=== PATIENT | female | born 1975 | race Caucasian/White ===

== ENCOUNTER 2016-11-11 19:34 | Emergency (ER) | payer MEDICAID ==
[~2016-11-11] VITALS: Ht 170.2 cm; Wt 63.5 kg
[~2016-11-11 19:34] MED LIST: BENADRYL 25MG C25 MG PO; CARAFATE1 GM PO; CIPRO 500MG TA500 MG PO; CYCLOBENZ5 MG PO; CYCLOBENZAPRINE10 MG PO; EFFER-K10 MEQ PO; FLEXERIL10 MG PO; IBU-8800 MG PO; LORTAB 5/500 501 TAB PO; MEDROL 4MG. DOSE4 MG PO; NAPROSYN 500MG500 MG PO; NAPROSYN500 M1 PO; NICOTINE PATCH;21 MG TD; NOMEDS XX; ONDANSETRON4 MG PO; PERCOCET 5/3251 EACH PO; REGLAN10 M1 PO; ROBAXIN-750750 MG PO; TUMERSAID PO; VESICARE5 MG PO; VICODIN 5/500 T1 TAB PO; VOLTAREN75 MG PO; ZITHROMAX Z PA250 MG PO
[2016-11-11 20:22] LABS: BUN 14 mg/dL (7-18)
[2016-11-11 20:23] LABS: GFR (ESTIMATED) 78 ML/MIN (59-)
[2016-11-11 20:36] LABS: HEMOGLOBIN 11.9 g/dL (12.2-16.2)
[2016-11-11 20:38] LABS: LYMPH # 2.7 K/mm3 (0.7-4.5); LYMPH % 51.6 % (10-50.0)
--- NOTE | 2016-11-11 20:52 | Emergency Room Report ---
History of Present Illness Time Seen by [id number] Presenting Problem in Triage Pt arrived:Walked Presenting Problem:C/O CHEST PAIN OFF AND ON X 3 DAYS. 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 N Clinical Suspician of Infection? N Mental Status: 1 - Regular (Normal Baseline) Sepsis Risk:Low Sepsis Risk Have you (or family members/close friends) recently traveled outside the [place]? N If Yes, where/when: Have you had exposure to infectious disease within the past month? N TB? Other? Specify: Comment The patient complains of intermittent chest pains off and on for 3 days. She describes different types of pains, some feeling like electrical shocks and some feeling like pressure on her chest. She says that yesterday she had a sharp electric shock type of pain that some was in her LEFT chest and radiated down her LEFT arm and lasted for 2 minutes, and ever since then she has had soreness in her LEFT chest. Nothing makes it better or worse. No change with exertion. Denies other symptoms. Pain is currently /. No treatment prior to arrival. She was admitted to this hospital in July for chest pain. She tells me that the chest pains she was having then are the same as now. She had myocardial infarction ruled out and was discharged. She says she was supposed to follow-up with Dr. Fall for cardiology evaluation but did not have insurance. She now has insurance since the beginning of the year. She says she has a new primary care physician Dr. Avelar, but cannot get in for 6-8 weeks. She is a smoker. She says she does not know her family history. She does not have diabetes, hypertension, hyperlipidemia, or any known heart disease. ALLERGIES Coded Allergies: codeine (Mild, NA-NAUSEA 11/11/16) povidone-iodine (From BETADINE) (Mild, I-RASH 11/11/16) NSAIDS (Non-Steroidal Anti-Inflamma (AGGRAVATES STOMACH ULCER 08/07/16) Home Medications Reported Medications No Known Home Medications History Medical History General CAD? No Angina: Yes [place]: No Hypertension? No Hyperlipidemia? No CHF? No DVT? No PE? No COPD? No Asthma? No Anemia? No GERD? No Gastric ulcers? Yes GI Bleed? No Hernia? No Thyroid Problems? No Hypothyroidism? No CVA? No Seizures? No Diabetes? No Renal Insuffiency? Yes End Stage Renal Disease? No UTI? Yes Stones? No GB Disease: No Nephritic Syndrome? No Asplenia? No Hepatitis? No Sickle Cell Disease? No Arthritis? Yes Migraines? No Cataracts? No Glaucoma? No MRSA? No HIV? No TB? No Anxiety? No Depression? Yes Cancer? 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 Family History Family Hx Diabetes Yes CAD Yes Hypertension Yes Hyperlipidemia Yes Cancer Yes TB No Social History Smoking Hx Smoker: Current Every Day Smoker Tobacco: Yes Type Cigars Packs/day < 1 Pack Alcohol Alcohol: No Review of Systems All Other Systems Reviewed and Negative Physical Exam Vital Signs Vital Signs Date Time Temp Pulse Resp B/P Pulse O2 O2 Flow FiO2 Ox Delivery Rate 11/11 2051 72 16 102/59 98 11/11 2009 80 18 113/69 99 11/11 1934 98.6 83 18 122/71 99 General Appearance normal appearance, WD/WN Eye Exam - bilateral eye normal exam, bilateral eye PERRL, bilateral eye EOMI Ear, Nose, Throat hearing grossly normal, normal ENT inspection Neck normal inspection, non-tender, supple, full range of motion Respiratory Status Yes: trachea midline, chest symmetrical, non tender chest. No: respiratory distress. Lung Sounds bilateral: normal breath sounds, lungs clear. 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 No Results/Orders Laboratory Tests 11/11/161944: Sodium 139, Potassium 3.6, Chloride 104, Carbon Dioxide 27, BUN 14, Creatinine 0.8, Estimated Creat Clear 91, Estimated GFR (MDRD) 78, Glucose 115 H, Calcium 8.7, Total Bilirubin 0.4, AST 10 L, ALT 14, Alkaline Phosphatase 93, Creatine Kinase 73, CK-MB (CK-2) Rel Index 1.0, CK and CKMB Interp 0.7, Troponin I < 0.02 , Total Protein 6.8, Albumin 3.7, Globulin 3.1, Albumin/Globulin Ratio 1.2, WBC 5.2, RBC 3.81 L, Hgb 11.9 L, Hct 35.1 L, MCV 92.1, RDW 14.0, Plt Count 227, Gran % 43.0, Gran # 2.2, Total Counted Pending, Lymphocytes % 51.6 H, Monocytes % 5.4, Neutrophils Pending, Lymphocytes (Manual) Pending, Lymphocytes # 2.7, Monocytes # 0.3, Platelet Estimate Pending, PUBS MCHC 33.9, MCH 31.2 Current Medication Orders Sig/Lalit Start time Last Medication Dose Route Stop Time Status Admin Aspirin 324 MG ONCE ONE 11/11 1944 DCr 11/11 PO 11/11 Aspirin 0 .STK-MED ONE 11/11 1944 DCr .ROUTE Sodium Chloride 10 ML PRN PRN 11/11 1944 AC IV 11/12 1942 Orders Procedure Date/time Status DIFFERENTIAL-WBC 11/11 1944 Active ELECTROCARDIOGRAM REQUEST 11/11 1942 Active CHEST(2 VIEWS-NOT PORTABLE) 11/11 1942 Active IV SALINE LOCK 11/11 1942 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 Her current discomfort has been present for 24 hours and she has negative cardiac enzymes and electrocardiogram. I feel one set of cardiac enzymes is sufficient given the duration of her pain. She has also been ruled out for the same pain in the past. I feel she can follow-up with Dr. Fall as an outpatient as previously instructed and I will give her a referral. I estimate there is LOW risk for PULMONARY EMBOLISM, ACUTE CORONARY SYNDROME, OR THORACIC AORTIC DISSECTION, thus I consider the discharge disposition reasonable. Departure Departure Disposition DC Home or Self Care(routine) Clinical Impression Primary Impression: Atypical chest pain Condition STABLE Referrals Eufemia PETERSON, Aashish Call tomorrow to set up appointment Patient Instructions DI for Atypical Chest Pain Additional Instructions Additional instructions for CHEST PAIN: See your physician as soon as possible for further evaluation. Return immediately if worsening chest pain, vomiting, shortness of breath, fever, coughing of blood. Prescriptions Current Visit Scripts No Known Home Medications ED Critical Care Critical Care No at [id number]
--- NOTE | 2016-11-11 20:52 | Emergency Room Report ---
History of Present Illness Time Seen by [id number] Presenting Problem in Triage Pt arrived:Walked Presenting Problem:C/O CHEST PAIN OFF AND ON X 3 DAYS. 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 N Clinical Suspician of Infection? N Mental Status: 1 - Regular (Normal Baseline) Sepsis Risk:Low Sepsis Risk Have you (or family members/close friends) recently traveled outside the [place]? N If Yes, where/when: Have you had exposure to infectious disease within the past month? N TB? Other? Specify: Comment The patient complains of intermittent chest pains off and on for 3 days. She describes different types of pains, some feeling like electrical shocks and some feeling like pressure on her chest. She says that yesterday she had a sharp electric shock type of pain that some was in her LEFT chest and radiated down her LEFT arm and lasted for 2 minutes, and ever since then she has had soreness in her LEFT chest. Nothing makes it better or worse. No change with exertion. Denies other symptoms. Pain is currently /. No treatment prior to arrival. She was admitted to this hospital in July for chest pain. She tells me that the chest pains she was having then are the same as now. She had myocardial infarction ruled out and was discharged. She says she was supposed to follow-up with Dr. Fall for cardiology evaluation but did not have insurance. She now has insurance since the beginning of the year. She says she has a new primary care physician Dr. Avelar, but cannot get in for 6-8 weeks. She is a smoker. She says she does not know her family history. She does not have diabetes, hypertension, hyperlipidemia, or any known heart disease. ALLERGIES Coded Allergies: codeine (Mild, NA-NAUSEA 11/11/16) povidone-iodine (From BETADINE) (Mild, I-RASH 11/11/16) NSAIDS (Non-Steroidal Anti-Inflamma (AGGRAVATES STOMACH ULCER 08/07/16) Home Medications Reported Medications No Known Home Medications History Medical History General CAD? No Angina: Yes [place]: No Hypertension? No Hyperlipidemia? No CHF? No DVT? No PE? No COPD? No Asthma? No Anemia? No GERD? No Gastric ulcers? Yes GI Bleed? No Hernia? No Thyroid Problems? No Hypothyroidism? No CVA? No Seizures? No Diabetes? No Renal Insuffiency? Yes End Stage Renal Disease? No UTI? Yes Stones? No GB Disease: No Nephritic Syndrome? No Asplenia? No Hepatitis? No Sickle Cell Disease? No Arthritis? Yes Migraines? No Cataracts? No Glaucoma? No MRSA? No HIV? No TB? No Anxiety? No Depression? Yes Cancer? 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 Family History Family Hx Diabetes Yes CAD Yes Hypertension Yes Hyperlipidemia Yes Cancer Yes TB No Social History Smoking Hx Smoker: Current Every Day Smoker Tobacco: Yes Type Cigars Packs/day < 1 Pack Alcohol Alcohol: No Review of Systems All Other Systems Reviewed and Negative Physical Exam Vital Signs Vital Signs Date Time Temp Pulse Resp B/P Pulse O2 O2 Flow FiO2 Ox Delivery Rate 11/11 2051 72 16 102/59 98 11/11 2009 80 18 113/69 99 11/11 1934 98.6 83 18 122/71 99 General Appearance normal appearance, WD/WN Eye Exam - bilateral eye normal exam, bilateral eye PERRL, bilateral eye EOMI Ear, Nose, Throat hearing grossly normal, normal ENT inspection Neck normal inspection, non-tender, supple, full range of motion Respiratory Status Yes: trachea midline, chest symmetrical, non tender chest. No: respiratory distress. Lung Sounds bilateral: normal breath sounds, lungs clear. 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 No Results/Orders Laboratory Tests 11/11/161944: Sodium 139, Potassium 3.6, Chloride 104, Carbon Dioxide 27, BUN 14, Creatinine 0.8, Estimated Creat Clear 91, Estimated GFR (MDRD) 78, Glucose 115 H, Calcium 8.7, Total Bilirubin 0.4, AST 10 L, ALT 14, Alkaline Phosphatase 93, Creatine Kinase 73, CK-MB (CK-2) Rel Index 1.0, CK and CKMB Interp 0.7, Troponin I < 0.02 , Total Protein 6.8, Albumin 3.7, Globulin 3.1, Albumin/Globulin Ratio 1.2, WBC 5.2, RBC 3.81 L, Hgb 11.9 L, Hct 35.1 L, MCV 92.1, RDW 14.0, Plt Count 227, Gran % 43.0, Gran # 2.2, Total Counted Pending, Lymphocytes % 51.6 H, Monocytes % 5.4, Neutrophils Pending, Lymphocytes (Manual) Pending, Lymphocytes # 2.7, Monocytes # 0.3, Platelet Estimate Pending, PUBS MCHC 33.9, MCH 31.2 Current Medication Orders Sig/Lalit Start time Last Medication Dose Route Stop Time Status Admin Aspirin 324 MG ONCE ONE 11/11 1944 DCr 11/11 PO 11/11 Aspirin 0 .STK-MED ONE 11/11 1944 DCr .ROUTE Sodium Chloride 10 ML PRN PRN 11/11 1944 AC IV 11/12 1942 Orders Procedure Date/time Status DIFFERENTIAL-WBC 11/11 1944 Active ELECTROCARDIOGRAM REQUEST 11/11 1942 Active CHEST(2 VIEWS-NOT PORTABLE) 11/11 1942 Active IV SALINE LOCK 11/11 1942 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 Her current discomfort has been present for 24 hours and she has negative cardiac enzymes and electrocardiogram. I feel one set of cardiac enzymes is sufficient given the duration of her pain. She has also been ruled out for the same pain in the past. I feel she can follow-up with Dr. Fall as an outpatient as previously instructed and I will give her a referral. I estimate there is LOW risk for PULMONARY EMBOLISM, ACUTE CORONARY SYNDROME, OR THORACIC AORTIC DISSECTION, thus I consider the discharge disposition reasonable. Departure Departure Disposition DC Home or Self Care(routine) Clinical Impression Primary Impression: Atypical chest pain Condition STABLE Referrals Eufemia PETERSON, Aashish Call tomorrow to set up appointment Patient Instructions DI for Atypical Chest Pain Additional Instructions Additional instructions for CHEST PAIN: See your physician as soon as possible for further evaluation. Return immediately if worsening chest pain, vomiting, shortness of breath, fever, coughing of blood. Prescriptions Current Visit Scripts No Known Home Medications ED Critical Care Critical Care No at [id number]
[2016-11-11 21:08] VITALS: BP 102/59
[2016-11-11 22:44] LABS: NEUTROPHILS 45 % (42-76)
--- NOTE | 2016-11-12 04:31 | RADIOLOGY REPORT PS360 ---
CHEST(2 VIEWS-NOT PORTABLE) HISTORY: C/O SHORTNESS OF BREATH AND COUGH COMPARISON: 08/07/2016 FINDINGS: The cardiomediastinal silhouette and pulmonary vascularity are within normal limits. Calcified granuloma right upper lobe with biapical pleural thickening. No lobar consolidation or collapse. No acute bony abnormalities. IMPRESSION: No change with no acute finding
== END 2016-11-11 21:12 | disposition home or self-care (01) ==
LOC: ER 19:34
PROVIDERS: Emergency Medicine
DX: R07.89 Other chest pain (principal); Z72.0 Tobacco use

== ENCOUNTER → 2017-01-07 | Outpatient (CLI) | payer MEDICAID ==
[2017-01-07 17:42] LABS: BUN 10 mg/dL (7-18)
[2017-01-07 17:46] LABS: GFR (ESTIMATED) 91 ML/MIN (59-)
== END ==
LOC: LAB 15:06
PROVIDERS: Nurse Practitioner Family
DX: E78.2 Mixed hyperlipidemia (principal)

== ENCOUNTER 2017-06-17 11:36 | Emergency (ER) | payer SELFPAY ==
[~2017-06-17] VITALS: Ht 170.2 cm; Wt 65.8 kg
[~2017-06-17 11:36] MED LIST changes: +BACTRIM DS 8001 TA1 PO
[2017-06-17 11:48] LABS: HEMOGLOBIN 13.2 g/dL (12.2-16.2); LYMPH # 2.8 K/mm3 (0.7-4.5); LYMPH % 42.8 % (10-50.0)
--- NOTE | 2017-06-17 12:10 | Emergency Room Report ---
History of Present Illness Time Seen by MD Vora Presenting Problem in Triage Pt arrived:Walked Presenting Problem:PT ADVISES SHE WAS SITTING ON HER PORCH WHEN SHE HAD A SUDDEN ONSET OF PAIN IN HER CHEST THAT GOES INTO HER BACK AND RIGHT SHOULDER. 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 N Clinical Suspician of Infection? N Mental Status: 1 - Regular (Normal Baseline) Sepsis Risk:Low Sepsis Risk Have you (or family members/close friends) recently traveled outside the [place]? N If Yes, where/when: Have you had exposure to infectious disease within the past month? N TB? Other? Specify: Patient with cough the last few days, no calf pain, smokes a pack a day, and now has chest pain with coughing, worse over the past hour while holding her grandbaby. Pain is SS and R sided/posterior, positional in nature, worse with cough/movement. No fever. No vomiting. No SOB. ALLERGIES Coded Allergies: codeine (Mild, NA-NAUSEA 11/11/16) povidone-iodine (From BETADINE) (Mild, I-RASH 11/11/16) NSAIDS (Non-Steroidal Anti-Inflamma (AGGRAVATES STOMACH ULCER 08/07/16) History Medical History General CAD? No Angina: Yes [place]: No Hypertension? No Hyperlipidemia? No CHF? No DVT? No PE? No COPD? No Asthma? No Anemia? No GERD? No Gastric ulcers? Yes GI Bleed? No Hernia? No Thyroid Problems? No Hypothyroidism? No CVA? No Seizures? No Diabetes? No Renal Insuffiency? Yes End Stage Renal Disease? No UTI? Yes Stones? No GB Disease: No Nephritic Syndrome? No Asplenia? No Hepatitis? No Sickle Cell Disease? No Arthritis? Yes Migraines? No Cataracts? No Glaucoma? No MRSA? No HIV? No TB? No Anxiety? No Depression? Yes Cancer? 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 Family History Family Hx Diabetes Yes CAD Yes Hypertension Yes Hyperlipidemia Yes Cancer Yes TB No Social History Smoking Hx Smoker: Current Every Day Smoker Tobacco: Yes Type Cigarettes Packs/day < 1 Pack Alcohol Alcohol: No Review of Systems All Other Systems Reviewed and Negative Respiratory cough Cardiovascular see HPI, chest pain (atypical chest pain), denies edema, denies palpitations, denies other Musculoskeletal see HPI Physical Exam Vital Signs Vital Signs Date Time Temp Pulse Resp B/P Pulse O2 O2 Flow FiO2 Ox Delivery Rate 06/17 1220 72 20 136/84 100 06/17 1137 98.0 79 16 136/84 98 General Appearance normal appearance, WD/WN, no apparent distress Eye Exam - bilateral eye normal exam, bilateral eye PERRL, bilateral eye EOMI Neck normal inspection, non-tender, supple, full range of motion Respiratory Status Yes: trachea midline, chest symmetrical, tender on palpation (tend R rhomboid). No: respiratory distress, non tender chest, use of accessory muscles, pain on inspiration, pain on expiration, productive cough, non productive cough. Lung Sounds bilateral: normal breath sounds, lungs clear. Cardiovascular normal exam, regular rate/rhythm, no peripheral edema, no gallop, no JVD, no murmur, no rub, normal peripheral pulses Peripheral Pulses Pulses normal Yes Gastrointestinal normal bowel sounds, normal exam, non tender, soft, no organomegaly, no pulsatile mass, no guarding, no rebound Extremities non-tender, normal range of motion, normal inspection, normal capillary refill, no calf tenderness, no pedal edema Strength 5 Upper Ext (L), 5 Upper Ext (R), 5 Lower Ext (L), 5 Lower Ext (R) Neurologic alert, normal exam, no motor/sensory deficits, oriented x 3 Glascow Coma Scale Glascow Coma Scale Response Value EYE response: 4 Spontaneously 4 MOTOR response: 6 OBEYS 6 VERBAL response: 5 Oriented & Converses 5 Total 15 Skin intact, warm/dry, abrasions, pallor Lymphatic no adenopathy Medical Decision Making LABS/Meds/Orders Pt receiving controlled substance in ED? No Results/Orders Laboratory Tests 06/17/17 1135: Sodium 141, Potassium 3.3 L, Chloride 103, Carbon Dioxide 30, BUN 11, Creatinine 0.7, Estimated Creat Clear 108, Estimated GFR (MDRD) 91, Glucose 119 H, Calcium 9.2, Total Bilirubin 1.1 H, AST 10 L, ALT 14, Alkaline Phosphatase 99, Creatine Kinase 83, CK-MB (CK-2) Rel Index 0.6, CK and CKMB Interp < 0.5, Troponin I < 0.02, Total Protein 7.7, Albumin 4.2, Globulin 3.5 H, Albumin/ Globulin Ratio 1.2, WBC 6.5, RBC 4.08 L, Hgb 13.2, Hct 38.2, MCV 93.5, RDW 12.5 , Plt Count 256, MPV 8.2, Gran % 48.0, Gran # 3.1, Lymphocytes % 42.8, Monocytes % 4.3, Eosinophils % 4.2, Basophils % 0.7, Lymphocytes # 2.8, Monocytes # 0.3, Eosinophils # 0.3, Basophils # 0.0, PUBS MCHC 34.6, MCH 32.4 H Current Medication Orders Sig/Lalit Start time Last Medication Dose Route Stop Time Status Admin Potassium Chloride 20 MEQ ONCE ONE 06/17 1300 AC PO 06/17 1301 Acetaminophen 650 MG ONCE ONE 06/17 1215 DC 06/17 PO 06/17 1216 1213 Acetaminophen 0 .STK-MED ONE 06/17 1209 DC PO Sodium Chloride 10 ML PRN PRN 06/17 1145 AC IV 06/18 1140 Orders Procedure Date/time Status 12 LEAD EKG-BESSON (INITIAL) 06/17 1140 Active ELECTROCARDIOGRAM REQUEST 06/17 1140 Active CHEST(2 VIEWS-NOT PORTABLE) 06/17 1140 Active IV SALINE LOCK 06/17 1140 Active CBC WITH AUTO DIFF 06/17 1140 Complete CARDIAC ENZYMES 06/17 1140 Complete CHEM 12 PROFILE 06/17 1140 Complete CM/EKG CM/EKG EKG rate, NSR, rhythm, no evid. of ischemic chgs, no ectopy, normal QRS, normal [place], normal EKG (HR 69 NSR) XRAY/CT/US XRAY/CT/US XRAY chest XR interpretation by reviewed by me Xray Results normal/NAD, no infiltrates, normal lung inflation kun (COPD picture neg acute) Departure Departure Time of Disposition 1251 Disposition DC Home or Self Care(routine) Clinical Impression Primary Impression: Cough Condition STABLE Referrals NO REFERRAL (PCP) Patient Instructions Cough Additional Instructions See MD of choice on list provided, one week; Rx Zithromax. Recommend Robitussin over the counter Discharge Counseling Counseled pt/family regarding diagnosis, test results, medications/RX, home care, follow up needs Prescriptions Current Visit Scripts Azithromycin (Avpak Azithromycin) 250 MG PO DAILY #6 TAB Zpack as directed over five days ED Critical Care Critical Care No at 1250
[2017-06-17 12:12] LABS: BUN 11 mg/dL (7-18); GFR (ESTIMATED) 91 ML/MIN (59-)
[2017-06-17] MEDS ORDERED: AVPAK AZITHROM250 MG PO (12:52)
[2017-06-17 13:20] VITALS: BP 136/84
--- NOTE | 2017-06-17 14:53 | RADIOLOGY REPORT PS360 ---
CHEST(2 VIEWS-NOT PORTABLE) HISTORY: COPD, tobacco abuse, chest pain. CHEST PAIN ORDERING PHYSICIAN: Shey Handy MD PATIENT AGE: 41 years COMPARISON: 11/11/2016 FINDINGS: The cardiomediastinal silhouette and pulmonary vascularity are within normal limits. Hyperinflation with attenuation of the peripheral pulmonary vessels consistent with COPD. There is mild biapical pleural thickening and a calcified granuloma in the right upper lobe. No lobar consolidation or collapse. No acute bony abnormalities. IMPRESSION: COPD, no change with no acute finding
== END 2017-06-17 13:21 | disposition home or self-care (01) ==
LOC: ER 11:36
PROVIDERS: Emergency Medicine
DX: R05 Cough (principal); R07.9 Chest pain, unspecified; N28.9 Disorder of kidney and ureter, unspecified; J44.9 Chronic obstructive pulmonary disease, unspecified

== ENCOUNTER 2017-06-17 18:14 | Emergency (ER) | payer SELFPAY ==
[~2017-06-17] VITALS: Ht 170.2 cm; Wt 63.5 kg
[~2017-06-17 18:14] MED LIST changes: +AVPAK AZITHROM250 MG PO
--- NOTE | 2017-06-17 18:27 | Emergency Room Report ---
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 PT ADVISES SHE FEELS DIZZY AND HAD SOME CHEST PAINS EARLIER. 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 N Clinical Suspician of Infection? N Mental Status: 1 - Regular (Normal Baseline) Sepsis Risk:Low Sepsis Risk Have you (or family members/close friends) recently traveled outside the [place]? N If Yes, where/when: Have you had exposure to infectious disease within the past month? N TB? Other? Specify: Patient seen in ER earlier today; trop and EKG normal and had right sided chest and shoulder pain with recent cough; went to work and stated she went to the bathroom, felt weak and "slid down the wall" and had right sided chest pain at that time. EMS gave her aspirin as she said she had no allergies, and arrives in NAD. Pain is somewhat positional and pleuritic in nature. No calf pain or edema. No cephalgia or palpitations. ALLERGIES Coded Allergies: codeine (Mild, NA-NAUSEA 11/11/16) povidone-iodine (From BETADINE) (Mild, I-RASH 11/11/16) NSAIDS (Non-Steroidal Anti-Inflamma (AGGRAVATES STOMACH ULCER 08/07/16) Home Medications Active Scripts Azithromycin (Avpak Azithromycin) 250 MG PO DAILY #6 TAB Prov: 06/17/17 History Medical History General CAD? No Angina: Yes [place]: No Hypertension? No Hyperlipidemia? No CHF? No DVT? No PE? No COPD? No Asthma? No Anemia? No GERD? No Gastric ulcers? Yes GI Bleed? No Hernia? No Thyroid Problems? No Hypothyroidism? No CVA? No Seizures? No Diabetes? No Renal Insuffiency? Yes End Stage Renal Disease? No UTI? Yes Stones? No GB Disease: No Nephritic Syndrome? No Asplenia? No Hepatitis? No Sickle Cell Disease? No Arthritis? Yes Migraines? No Cataracts? No Glaucoma? No MRSA? No HIV? No TB? No Anxiety? No Depression? Yes Cancer? 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 N/A Family History Family Hx Diabetes Yes CAD Yes Hypertension Yes Hyperlipidemia Yes Cancer Yes TB No Social History Smoking Hx Smoker: Current Every Day Smoker Tobacco: Yes Type Cigarettes Packs/day < 1 Pack Alcohol Alcohol: No Review of Systems All Other Systems Reviewed and Negative Respiratory see HPI Cardiovascular see HPI Musculoskeletal see HPI Physical Exam Vital Signs Vital Signs Date Time Temp Pulse Resp B/P Pulse O2 O2 Flow FiO2 Ox Delivery Rate 06/17 1922 72 20 105/75 98 06/17 1818 98.2 68 16 109/71 98 General Appearance normal appearance, WD/WN, no apparent distress Eye Exam - bilateral eye normal exam, bilateral eye PERRL, bilateral eye EOMI Neck normal inspection, non-tender, supple, full range of motion Respiratory Status Yes: trachea midline, chest symmetrical, tender on palpation, non productive cough. No: non tender chest, use of accessory muscles, pain on inspiration, pain on expiration, productive cough. Lung Sounds bilateral: normal breath sounds, lungs clear. Cardiovascular normal exam, regular rate/rhythm, no peripheral edema, no gallop, no JVD, no murmur, no rub, normal peripheral pulses Gastrointestinal normal bowel sounds, normal exam, non tender, soft, no organomegaly, no guarding, no rebound (neg Sanders's) Extremities non-tender, normal range of motion, normal inspection, normal capillary refill, no calf tenderness, no pedal edema Strength 5 Upper Ext (L), 5 Upper Ext (R), 5 Lower Ext (L), 5 Lower Ext (R) Neurologic alert, normal exam, no motor/sensory deficits, oriented x 3 Glascow Coma Scale Glascow Coma Scale Response Value EYE response: 4 Spontaneously 4 MOTOR response: 6 OBEYS 6 VERBAL response: 5 Oriented & Converses 5 Total 15 Skin intact, normal color, warm/dry Medical Decision Making LABS/Meds/Orders Pt receiving controlled substance in ED? No Results/Orders Laboratory Tests 06/17/17 1833: Opiates Screen NEGATIVE, Urine Methadone Screen NEGATIVE, Barbiturates NEGATIVE, Phencyclidine Screen NEGATIVE, Amphetamines Screen NEGATIVE, Benzodiazepines Screen NEGATIVE, Cocaine Screen NEGATIVE, Marijuana (THC) Screen POSITIVE H, Urine Color YELLOW, Urine Appearance CLEAR, Urine pH 6.0, Ur Specific [place] 1.010, Urine Protein NEGATIVE, Urine Ketones NEGATIVE, Urine Blood TRACE-LYSED, Urine Nitrate NEGATIVE, Urine Bilirubin NEGATIVE, Urine Urobilinogen 1.0, Ur Leukocyte Esterase TRACE H, Urine RBC NONE, Urine WBC OCC, Ur Squamous Epith Cells 5-10, Urine Bacteria TRACE, Urine Glucose NEGATIVE 06/17/17 1800: Sodium 140, Potassium 3.3 L, Chloride 103, Carbon Dioxide 26, BUN 12, Creatinine 0.6, Estimated Creat Clear 121, Estimated GFR (MDRD) 109, Glucose 90, Calcium 8.8, Total Bilirubin 0.9, AST 11 L, ALT 14, Alkaline Phosphatase 95, Creatine Kinase 84, CK-MB (CK-2) Rel Index 0.6, CK and CKMB Interp < 0.5, Troponin I < 0.02, Total Protein 7.4, Albumin 4.1, Globulin 3.3 H, Albumin/ Globulin Ratio 1.2, Amylase 54, Lipase 121, D-Dimer < 100, WBC 6.3, RBC 3.98 L, Hgb 12.5, Hct 36.9 L, MCV 92.6, RDW 12.3, Plt Count 245, MPV 8.3, Gran % 44.1, Gran # 2.8, Lymphocytes % 48.2, Monocytes % 4.6, Eosinophils % 2.6, Basophils % 0.5, Lymphocytes # 3.0, Monocytes # 0.3, Eosinophils # 0.2, Basophils # 0.0, PUBS MCHC 33.9, MCH 31.4 H Current Medication Orders Sig/Lalit Start time Last Medication Dose Route Stop Time Status Admin Potassium Chloride 0 .STK-MED ONE 06/17 1918 DC PO Potassium Chloride 20 MEQ ONCE ONE 06/17 1915 DC 06/17 PO 06/17 Sodium Chloride 10 ML PRN PRN 06/17 183 AC IV 06/18 1822 Orders Procedure Date/time Status [id number] BY SAME 06/17 1825 Active ELECTROCARDIOGRAM REQUEST 06/17 1822 Active IV SALINE LOCK 06/17 1822 Active URINALYSIS/COMPLETE 06/17 182 Complete LIPASE 06/17 1822 Complete DRUG ABUSE SCREEN (TRIAGE) 06/17 1822 Complete D-DIMER 06/17 1822 Complete CBC WITH AUTO DIFF 06/17 1822 Complete CARDIAC ENZYMES 06/17 1822 Complete CHEM 12 PROFILE 06/17 1822 Complete AMYLASE 06/17 1822 Complete CM/EKG CM/EKG EKG rate, NSR, rhythm, no evid. of ischemic chgs, no ectopy, normal QRS, normal [place], normal EKG ([id number]) XRAY/CT/US XRAY/CT/US XR interpretation by reviewed by me Xray Results normal/NAD, no infiltrates, normal heart size, normal lung inflation kun (COPD no change from earlier) Pulmonary Embolism Score WELL'S CRITERIA FOR PE WELL'S CRITERIA FOR PE Response Value Clinical signs/symptoms of DVT NO 0 PE is #1 diagnosis or equally likely NO 0 Heart rate is > 100 NO 0 Immobile at least 3 days, or surgery in past 4 wks NO 0 Previously, obj. diagnosed PE or DVT NO 0 Hemoptysis NO 0 Malignancy w/Rx within 6mo, or palliative NO 0 Total 0 Progress ED Progress Notes Date 06/17/17 Time 1925 Comment Resting comfortably; reviewed labs and findings; lifts grandbaby on right and has tenderness to palpation on right; advised no carrying next few days, close f /u PCP of choice; low clinical susp PE and normal d Dimer will not CT scan. Departure Departure Time of Disposition 1926 Disposition DC Home or Self Care(routine) Clinical Impression Primary Impression: Atypical chest pain Condition STABLE Patient Instructions DI for Atypical Chest Pain Additional Instructions Tylenol as needed, take it easy the next two days with no work, see family MD of choice on list provided for recheck in one to four days, fill Rx for Zithromax. Discharge Counseling Counseled pt/family regarding diagnosis, test results, medications/RX, home care, follow up needs ED Critical Care Critical Care No at 1928
[2017-06-17 18:33] LABS: HEMOGLOBIN 12.5 g/dL (12.2-16.2); LYMPH % 48.2 % (10-50.0)
[2017-06-17 18:38] LABS: URINE BILIRUBIN - DIPSTICK NEGATIVE (NEG); URINE BLOOD TRACE-LYSED (NEG)
[2017-06-17 18:49] LABS: AMPHETAMINES/METAMPHETAMINES NEGATIVE ng/mL (<1000)
[2017-06-17 18:56] LABS: BUN 12 mg/dL (7-18)
[2017-06-17 19:00] LABS: GFR (ESTIMATED) 109 ML/MIN (59-)
--- NOTE | 2017-06-17 19:12 | RADIOLOGY REPORT PS360 ---
CHEST(2 VIEWS-NOT PORTABLE) HISTORY: NEAR SYNCOPE ORDERING PHYSICIAN: Shey Handy MD PATIENT AGE: 41 years COMPARISON: Same day FINDINGS: The cardiomediastinal silhouette and pulmonary vascularity are within normal limits. There is mild hyperinflation with attenuation of the peripheral pulmonary vessels consistent with COPD. There is evidence of old granulomatous disease with mild biapical pleural thickening. No acute bony anomalies. IMPRESSION: COPD, no change with no acute finding
[2017-06-17 19:41] VITALS: BP 105/75
== END 2017-06-17 19:41 | disposition home or self-care (01) ==
LOC: ER 18:14
PROVIDERS: Emergency Medicine
DX: R07.89 Other chest pain (principal); Z72.0 Tobacco use; N28.9 Disorder of kidney and ureter, unspecified